=== PATIENT | female | born 1985 | race Caucasian/White ===

== ENCOUNTER 2023-03-07 11:07 | Emergency (ER) | payer OTHER, SELFPAY ==
--- NOTE | ~2023-03-07 | XR_ITS ---
XR chest 2V DATE: 03/07/2023 12:17 INDICATION: Shortness of breath, dry cough. Hypertension. Tachycardia. Gravid patient. TECHNIQUE: 2 views with abdominal and pelvic shielding COMPARISON: None FINDINGS: Normal heart size. No hilar or mediastinal enlargement. No pulmonary infiltrate or consolid ation, pleural effusion or pulmonary vascular congestion or pneumothorax. IMPRESSION: No active cardiopulmonary disease Reviewed, dictated and finalized at location L.
[2023-03-07 11:32] VITALS: BP 117/54; PULSE 97; RESP 18; TEMP 36.7; O2SAT 100
--- NOTE | 2023-03-07 11:32 | ECG_ITS ---
Measurements Intervals [place] Rate: 91 P: 46 [place]: 158 QRS: 48 QRSD: 74 T: 41 QT: 334 QTc: 413 Interpretive Statements SINUS RHYTHM BASELINE ARTIFACT NORMAL ECG NO PREVIOUS ECG AVAILABLE FOR COMPARISON Electronically Signed On 03-07-2023 17:19:59 CDT by Miguel Simms M.D.
[2023-03-07 11:47] LABS: Basophils Absolute Auto 0.1 K/mm3 (0.0-0.1); Basophils Percent Auto 0.5 % (0.2-1.2); Eosinophils Absolute Auto 0.2 K/mm3 (0-0.3); Eosinophils Percent Auto 1.2 % (0-4.4); Hematocrit 36.8 % (37.0-47.0); Immature Granulocyte Absolute 0.22 K/mm3 (0.00-0.031); Immature Granulocyte Percent A 1.8 % (0-0.5); Lymphocytes Absolute Auto 1.13 K/mm3 (0.9-3.2); Mean Corpuscular HGB Conc 32.6 g/dl (32-36); Mean Corpuscular Hemoglobin 31.6 pg (26-34); Mean Corpuscular Volume 96.8 fl (80-100); Mean Platelet Volume 9.7 fl (7.4-10.4); Monocytes Absolute Auto 0.8 K/mm3 (0.1-0.6); Monocytes Percent Auto 6.3 % (2.6-8.5); Neutrophils Absolute Auto 10.2 K/mm3 (1.3-6.7); Neutrophils Percent Auto 81.2 % (45.5-73.1); Platelet Count Result 255 k/mm3 (150-375); Red Cell Distribution Width 13.1 % (11.5-14.5); White Blood Count 12.5 K/mm3 (4.5-10.0)
[2023-03-07 12:21] LABS: Alanine Aminotransferase 19 U/L (6-35); Albumin Level 3.6 g/dL (3.5-5.1); Alkaline Phosphatase 66 U/L (38-126); Anion Gap 7 mmol/L (8-16); Aspartate Amino Transferase 27 U/L (14-36); Bilirubin,Total 0.3 mg/dL (0.2-1.3); Blood Urea Nitrogen 5 mg/dL (7-17); Calcium 8.5 mg/dL (8.4-10.2); Carbon Dioxide 22 mmol/L (22-30); Chloride 105 mmol/L (98-107); Estimated CRCL calculation 150 ml/min; Estimated Glomerular Filt Rate > 60; Glucose 98 mg/dL (65-110); Potassium 3.6 mmol/L (3.4-5.0); Sodium 134 mmol/L (137-145)
[2023-03-07 14:03] VITALS: BP 120/68; PULSE 89; RESP 18; O2SAT 99
[2023-03-07 15:36] LABS: SARS-CoV-2 RNA PCR Negative (Negative)
--- NOTE | 2023-03-07 16:46 | ED.GENADULT ---
HPI - General Adult General Chief complaint: Shortness of Breath/Dyspnea Stated complaint: SOB/ increased HR Time Seen by Provider: 03/07/23 14:42 History of Present Illness HPI narrative: Patient is a 37-year-old female who presents ER with some sore throat and shortness of breath. Woke up this morning and had slight dyspnea and some sore throat. Associated with cough and mild nasal congestion. No chest pain or chest pressure. No hemoptysis. No known sick contacts. She does report that she has anxiety and may have had some panic this morning when she woke up as well. Patient is . She is feeling the baby move. No vaginal bleeding or leakage of fluid. Reports blood pressure was elevated this morning in the 150s but has since normalized. Review of Systems Review of Systems: All systems reviewed & are unremarkable except as noted in HPI and below Constitutional: Constitutional: Denies chills, Denies fatigue and Denies fever(s) ENT: Reports nasal congestion and Reports sore throat Cardiovascular: Cardiovascular: Denies chest pain, Denies rapid heart rate and Denies radiating jaw, neck or arm pain Respiratory: Respiratory: Reports cough, Reports dyspnea and Denies wheezing Gastrointestinal: Gastrointestinal: Denies abdominal pain, Denies nausea and Denies vomiting PMFSH Past Medical History Medical History (Updated 03/07/23 @ 21:40 by Zafar Mckeon MD) Factor V Leiden Surgical History Surgical History (Updated 03/07/23 @ 21:40 by Zafar Mckeon MD) No history of previous surgery Exam Narrative: GENERAL: Well-appearing, well-nourished, and in no acute distress. HEAD: Normocephalic, atraumatic. ENT: Mucous membranes moist. Mild pharyngeal erythema without tonsillar hypertrophy. Uvula midline and nonedematous. NECK: Supple. CHEST: Clear to auscultation. No respiratory distress. HEART: Regular rate and rhythm. Normal peripheral pulses. ABDOMEN: Soft, gravid uterus above the umbilicus, nondistended. EXTREMITIES: Normal range of motion. No edema. NEURO: Alert and oriented x3. PSYCH: Normal mood and affect. Course Course Emergency Course: Patient resting comfortably. COVID test negative. Normal electrolytes. Mild leukocytosis that is nonspecific. X-ray without evidence of pneumonia. Patient felt appropriate for discharge home. Also symptoms do not seem consistent with pulmonary embolism. Patient without tachycardia and no hypoxia. No additional chest wall pain at this time and no dyspnea at this time. Radiation does not seem to be an appropriate risk at this time. Vital Signs Vital signs: Vital Signs Temperature 98.1 F 03/07/23 11:32 Pulse Rate 97 03/07/23 11:32 Respiratory Rate 18 03/07/23 11:32 Blood Pressure 117/54 L 03/07/23 11:32 Pulse Oximetry 100 03/07/23 11:32 Oxygen Delivery Room Air 03/07/23 11:32 Temperature 98.1 F 03/07/23 11:32 Pulse Rate 93 03/07/23 16:59 Respiratory Rate 17 03/07/23 16:59 Blood Pressure 128/82 03/07/23 16:59 Pulse Oximetry 100 03/07/23 16:59 Oxygen Delivery Room Air 03/07/23 11:32 Medical Decision Making Vital Signs Vital Signs: Vital Signs Temperature 98.1 F 03/07/23 11:32 Pulse Rate 97 03/07/23 11:32 Respiratory Rate 18 03/07/23 11:32 Blood Pressure 117/54 L 03/07/23 11:32 Pulse Oximetry 100 03/07/23 11:32 Oxygen Delivery Room Air 03/07/23 11:32 Temperature 98.1 F 03/07/23 11:32 Pulse Rate 93 03/07/23 16:59 Respiratory Rate 17 03/07/23 16:59 Blood Pressure 128/82 03/07/23 16:59 Pulse Oximetry 100 03/07/23 16:59 Oxygen Delivery Room Air 03/07/23 11:32 Lab Data 03/07/23 11:41 03/07/23 11:41 Labs: Lab Results 03/07/23 03/07/23 Range/Units 11:41 14:51 WBC 12.5 H (4.5-10.0) K/mm3 RBC 3.80 L (4.2-5.4) M/mm3 Hgb 12.0 (12.0-15.0) g/dL Hct 36.8 L (37.0-47.0) % MCV 96.8 (80-100) fl MCH 3
[2023-03-07 16:59] VITALS: BP 128/82; PULSE 93; RESP 17; O2SAT 100
== END 2023-03-07 17:00 | disposition home or self-care (01) ==
PROVIDERS: Emergency Medicine; Emergency Provider Emergency Medicine; PCP Internal Medicine
DX: O99.512 Diseases of the respiratory system complicating pregnancy, second trimester (principal); J06.9 Acute upper respiratory infection, unspecified; Z20.822 Contact with and (suspected) exposure to COVID-19; O99.891 Other specified diseases and conditions complicating pregnancy; D68.2 Hereditary deficiency of other clotting factors; Z3A.23 23 weeks gestation of pregnancy; Z79.82 Long term (current) use of aspirin
CPT/HCPCS: 36415; 71046; 80053; 85025; 87635; 93005; 99284